=== PATIENT | male | born 1975 | race Caucasian/White ===

== ENCOUNTER 2023-08-13 22:37 | Emergency (ER) | payer SELFPAY ==
[2023-08-13 22:45] VITALS: BP 153/113; PULSE 111; RESP 19; TEMP 37.8; O2SAT 96
--- NOTE | 2023-08-14 01:59 | PC.NURSE ---
patient states he has waited too long and left from triage
== END 2023-08-14 02:31 | disposition left against medical advice (07) ==
LOC: ANHED 08-14 02:10
DX: R00.0 Tachycardia, unspecified (principal)
CPT/HCPCS: 99199